=== PATIENT | female | born 1965 | race Caucasian/White ===

== ENCOUNTER 2022-04-02 18:22 | Emergency (ER) | payer OTHER ==
[~2022-04-02] VITALS: Ht 162.6 cm; Wt 56.8 kg
[2022-04-02 18:25] VITALS: BP 103/39
[2022-04-02] MEDS ORDERED: LIDOcaine 1% 30ml preserv. free vial IJ STA (20:45)
== END 2022-04-02 22:19 | disposition home or self-care (01) ==
LOC: ER 18:24
DX: S52.121A Displaced fracture of head of right radius, initial encounter for closed fracture (principal); Z88.5 Allergy status to narcotic agent; Z88.6 Allergy status to analgesic agent; Z79.899 Other long term (current) drug therapy; W18.39XA Other fall on same level, initial encounter; Y92.89 Other specified places as the place of occurrence of the external cause; Y99.8 Other external cause status; Y93.89 Activity, other specified
CPT/HCPCS: 25605; 73100; 73110; 99284; A4565; A6446; A6449; J7030